=== PATIENT | male | born 1990 | race African-American/Black ===

== ENCOUNTER 2016-08-28 13:58 | Emergency (ER) | payer SELFPAY ==
[2016-08-28 14:03] VITALS: BMI 35.4
[2016-08-28 15:12] LABS: URINE APPEARANCE CLEAR; URINE BILIRUBIN NEGATIVE (NEGATIVE); URINE COLOR YELLOW; URINE GLUCOSE (UA) NEGATIVE (NEGATIVE); URINE KETONE NEGATIVE (NEGATIVE); URINE NITRITE NEGATIVE (NEGATIVE); URINE PROTEIN NEGATIVE (NEGATIVE); URINE UROBILINOGEN NEGATIVE E.U./dl (0.2-1.0)
[2016-08-28 15:14] LABS: URINE BLOOD 3+ (NEGATIVE); URINE LEUK ESTERASE TRACE (NEGATIVE)
[2016-08-28] MEDS ORDERED: KETOROLAC TROMETHAMINE 30 MG/1 ML VIAL IVPUSH ONE (15:16)
[2016-08-28] MEDS ORDERED: SODIUM CHLORIDE 1,000 ML IV STA (15:16)
[2016-08-28 15:18] LABS: URINE MUCUS RARE; URINE WBC 9 /hpf (3-5)
[2016-08-28 15:19] LABS: URINE RBC 219 /hpf (0-3)
--- NOTE | 2016-08-28 15:22 | PDOC ---
History of Present Illness - General Chief Complaint: Pain Stated Complaint: BLOOD IN URINE/LEFT SIDE PAIN Time Seen by Provider: 08/28/16 14:19 History Source: Patient Exam Limitations: No Limitations - History of Present Illness Travel History: No Initial Comments: 08/28/16 15:20 25-year-old male presents to the ED with complaints of left flank and associate with hematuria since yesterday. Patient denies history of urinary tract infection, penile discharge, renal colic, or recent injury. Patient does state family history of kidney stones. Patient has no other complaints at this time including fever, nausea, or urinary frequency Timing/Duration: reports: getting worse Quality: reports: moderate Abdominal Pain Onset Location: reports: LLQ, flank Pain Radiation: reports: no radiation Activities at Onset: reports: none Aggravating Factors: improves with: None Alleviating Factors: improves with: None Past History - Travel Traveled outside of the country in the last 30 days: No Close contact w/someone who was outside of country & ill: No - Past Medical History Allergies/Adverse Reactions: Allergies Allergy/AdvReac Type Severity Reaction Status Date / Time Penicillins Allergy Intermediate Rash Verified 08/28/16 14:00 doxycycline AdvReac Intermediate Nausea Verified 08/28/16 14:00 Home Medications: Ambulatory Orders NK [No Known Home Medication] 06/30/15 Suicide Attempt (Hx): No Other medical history: none - Surgical History Neurologic Surgery: Yes (BENIGN TUMOR REMOVAL BACK OF HEAD) - Immunization History Td Vaccination: Yes Immunization Up to Date: Yes - Psycho/Social/Smoking Cessation Hx Anxiety: No Suicidal Ideation: No Smoking Status: No Smoking History: Current some day smoker Have you smoked in the past 12 months: Yes Number of Cigarettes Smoked Daily: 0 Cigars Per Day: 1 Information on smoking cessation initiated: Yes 'Breaking Loose' booklet given: 08/28/16 Hx Alcohol Use: No Drug/Substance Use Hx: No Substance Use Type: None Patient Lives Alone: No Lives with/in: parents Review of Systems - Review of Systems Able to Perform ROS?: Yes Constitutional: No: Symptoms Reported HEENTM: No: Symptoms Reported ABD/GI: No: Symptoms Reported : Yes: Flank Pain, Hematuria Musculoskeletal: No: Symptoms Reported Integumentary: No: Symptoms Reported Neurological: No: Symptoms reported Endocrine: No: Symptoms Reported Hematologic/Lymphatic: No: Symptoms Reported *Physical Exam - Vital Signs Last Vital Signs Temp Pulse Resp BP Pulse Ox 97.8 F 61 18 130/78 100 08/28/16 14:00 08/28/16 14:00 08/28/16 14:00 08/28/16 14:00 08/28/16 14:00 - Physical Exam General Appearance: Yes: Nourished, Appropriately Dressed. No: Apparent Distress HEENT: negative: Pale Conjunctivae Neck: positive: Supple Respiratory/Chest: positive: Lungs Clear, Normal Breath Sounds. negative: Respiratory Distress, Accessory Muscle Use Cardiovascular: positive: Regular Rhythm, Regular Rate. negative: Murmur Gastrointestinal/Abdominal: positive: Soft, Tenderness (left flank. LEFT LOWER QUAD) Musculoskeletal: positive: CVA Tenderness (L) (MILD) Extremity: positive: Normal Capillary Refill Integumentary: positive: Normal Color, Warm, Moist Neurologic: positive: Normal Mood/Affect, Motor Strength 08/24 ED Treatment Course - LABORATORY CBC & Chemistry Diagram: 08/28/16 17:37 08/28/16 15:40 - ADDITIONAL ORDERS Additional order review: Laboratory Results 08/28/16 14:47 Urine Color Yellow Urine Appearance Clear Urine pH 5.0 D Urine Protein Negative Urine Glucose (UA) Negative Urine Ketones Negative Urine Blood 3+ H Urine Nitrite Negative Urine Bilirubin Negative Urine Urobilinogen Negative Ur Leukocyte Esterase Trace H - RADIOLOGY Radiology Studies Ordered: Category Date Time Status SPIRAL- RENAL-STONE CT [CT] Stat CT Scan 08/28/16 15:16 Ordered Medical Decision Making - Medical Decision Making 08/28/16 15:23 Patient with left flank pain associated hematuria for the past 2 days. Patient had tenderness to the left flank left CVA and left lower quadrant. Patient ordered for urine, labs, Toradol, IV fluids and spiral CT. 08/28/16 16:38 Laboratory Tests 08/28/16 14:47 Urine Blood 3+ H Ur Leukocyte Esterase Trace H Urine RBC 219 Urine WBC 9 CBC and comp hemolyzed. Patient CT shows no acute findings. Patient denies any trauma or insertion of object into his urethra and unsure of the quantity of blood noted in urine. Patient possibly had passed a stone but will do a bladder ultrasound and if negative will refer to urology. Laboratory Tests 08/28/16 17:37 WBC 6.3 Hgb 14.5 Hct 43.4 Neutrophils % 38.5 L Lymphocytes % 46.0 H Eosinophils % 4.6 H 08/28/16 18:45 Patient's ultrasound showed no acute findings. Patient to be discharged home to follow-up with urologist. 08/28/16 18:51 *DC/Admit/Observation/Transfer Diagnosis at time of Disposition: Hematuria - Discharge Dispostion Disposition: HOME Condition at time of disposition: Good - Referrals Referrals: Terry Parisi MD [Primary Care Provider] - Drew Morelos MD [Staff Physician] - - Patient Instructions Printed Discharge Instructions: DI for Hematuria Additional Instructions: Please follow-up with referred urologist and try to drink plenty of fluids. If the pain comes back, May take Tylenol otherwise with severe pain, come back to the emergency room.
[2016-08-28 17:48] LABS: BASOPHIL 1.2 % (0-2.0); EOSINOPHIL 4.6 % (0-4.5); MCH 31.8 pg (25.7-33.7); MCHC 33.4 g/dl (32.0-35.9); MEAN CELL VOLUME 95.1 fl (80-96); MEAN PLT VOLUME 8.8 fl (7.5-11.1); NEUTROPHILS 38.5 % (42.8-82.8); PLATELET COUNT 273 K/MM3 (134-434); RDW 12.7 % (11.9-15.9); WHITE BLOOD COUNT 6.3 K/mm3 (4.0-10.0)
--- NOTE | 2016-08-28 18:28 | PDOC ---
*Physical Exam - Vital Signs Last Vital Signs Temp Pulse Resp BP Pulse Ox 97.8 F 61 18 130/78 100 08/28/16 14:00 08/28/16 14:00 08/28/16 14:00 08/28/16 14:00 08/28/16 14:00 ED Treatment Course - LABORATORY CBC & Chemistry Diagram: 08/28/16 17:37 08/28/16 17:37 - ADDITIONAL ORDERS Additional order review: Laboratory Results 08/28/16 08/28/16 15:40 14:47 Sodium Cancelled Potassium Cancelled Chloride Cancelled Carbon Dioxide Cancelled Anion Gap Cancelled BUN Cancelled Creatinine Cancelled Creat Clearance w eGFR Cancelled Random Glucose Cancelled Calcium Cancelled Total Bilirubin Cancelled AST Cancelled ALT Cancelled Alkaline Phosphatase Cancelled Total Protein Cancelled Albumin Cancelled Urine Color Yellow Urine Appearance Clear Urine pH 5.0 D Urine Protein Negative Urine Glucose (UA) Negative Urine Ketones Negative Urine Blood 3+ H Urine Nitrite Negative Urine Bilirubin Negative Urine Urobilinogen Negative Ur Leukocyte Esterase Trace H Urine RBC 219 Urine WBC 9 Ur Epithelial Cells Rare Urine Mucus Rare 08/28/16 08/28/16 17:37 15:40 RBC 4.57 Cancelled MCV 95.1 Cancelled MCHC 33.4 Cancelled RDW 12.7 Cancelled MPV 8.8 Cancelled Neutrophils % 38.5 L Cancelled Lymphocytes % 46.0 H Cancelled Monocytes % 9.7 Cancelled Eosinophils % 4.6 H Cancelled Basophils % 1.2 Cancelled - Medications Given in the ED: ED Medications Discontinued Medications Generic Name Dose Route Start Last Admin Trade Name Freq PRN Reason Stop Dose Admin Sodium Chloride 1,000 mls @ 1,000 mls/hr 08/28/16 15:16 08/28/16 15:50 Normal Saline - IV 08/28/16 16:15 1,000 mls/hr ASDIR STA Administration Ketorolac Tromethamine 30 mg 08/28/16 15:16 08/28/16 15:50 Toradol Injection - IVPUSH 08/28/16 15:17 30 mg ONCE ONE Administration Medical Decision Making - Medical Decision Making 08/28/16 18:27 Pt seen by Midlevel Provider under my direct supervision Ancillary studies reviewed I agree with plan as outlined by Midlevel Provider *DC/Admit/Observation/Transfer Diagnosis at time of Disposition: Hematuria - Discharge Dispostion Disposition: HOME Condition at time of disposition: Good - Referrals Referrals: Drew Morelos MD [Staff Physician] - Terry Parisi MD [Primary Care Provider] - - Patient Instructions Printed Discharge Instructions: DI for Hematuria Additional Instructions: Please follow-up with referred urologist and try to drink plenty of fluids. If the pain comes back, May take Tylenol otherwise with severe pain, come back to the emergency room.
[2016-08-28 18:48] LABS: ALBUMIN 4.1 g/dl (3.4-5.0); ANION GAP 9 (8-16); BILIRUBIN,TOTAL 0.6 mg/dL (0.2-1.0); CALCIUM 8.9 mg/dL (8.5-10.1); CO2 26 mmol/L (21-32); COCKROFT - GAULT 164.38; CREATININE 1.1 mg/dL (0.7-1.3); GLUCOSE,RANDOM 85 mg/dL (74-106); SGOT/AST 32 U/L (15-37); SGPT/ALT 83 U/L (12-78); TOT PROT 7.6 g/dl (6.4-8.2)
[2016-08-28 18:49] LABS: ALK PHOS 72 U/L (45-117)
[2016-08-28 19:34] VITALS: BP 145/74; PULSE 80; TEMP 98.6
== END 2016-08-28 19:28 | disposition home or self-care (01) ==
LOC: JER 13:58
PROC: 3E0333Z Introduction of Anti-inflammatory into Peripheral Vein, Percutaneous Approach (ICD-10-PCS; principal; 2016-08-28)
DX: R31.9 Hematuria, unspecified (principal); Z84.1 Family history of disorders of kidney and ureter; F17.210 Nicotine dependence, cigarettes, uncomplicated
CPT/HCPCS: 36415; 74176; 76856-TC; 80053; 81003; 81015; 85025; 87086; 99283-25

== ENCOUNTER 2017-03-12 18:20 | Emergency (ER) | payer SELFPAY ==
--- NOTE | 2017-03-12 18:24 | PDOC ---
Rapid Medical Evaluation Time Seen by Provider: 03/12/17 18:21 Medical Evaluation: Allergies Allergy/AdvReac Type Severity Reaction Status Date / Time Penicillins Allergy Intermediate Rash Verified 08/28/16 14:00 doxycycline AdvReac Intermediate Nausea Verified 08/28/16 14:00 03/12/17 18:21 Pt presents with complaint of : rt cheek abscess x 1 week. no hx mrsa, no fever On brief exam: dry fluctulant rt cheek abscess I have ordered the following: none Pt will go to the Emergency Dept for further workup: Discharge Disposition - Diagnosis Abscess of external cheek, right - Referrals - Patient Instructions - Post Discharge Activity
[2017-03-12 18:26] VITALS: BP 120/65; PULSE 68; TEMP 97.7; BMI 32.8
--- NOTE | 2017-03-12 19:15 | PDOC ---
History of Present Illness - General Chief Complaint: Abscess Boil Stated Complaint: ABSCESS BOIL Time Seen by Provider: 03/12/17 18:21 - History of Present Illness Initial Comments: 03/12/17 19:08 CHIEF COMPLAINT: abscess HISTORY OF PRESENT ILLNESS: 26 yo M with hx of abscess to back of head requiring surgical I&D presents to fast track with abscess to R cheek x 1 week. Patient states "I was going to come in earlier, but I thought maybe I'd just let it sit until it was ready to pop. I think it's draining on its own now though." Patient denies any fever, chills, nausea, vomiting, or diarrhea. PAST MEDICAL HISTORY: Denies past medical history FAMILY HISTORY: Denies SOCIAL HISTORY: Denies tobacco, alcohol, illicit drug use. SURGICAL HISTORY: Denies ALLERGIES: PCB, doxy REVIEW OF SYSTEMS as per HPI PHYSICAL EXAM General Appearance: Well-appearing, appropriately dressed. HEENT: EOMI, PERRLA Respiratory/Chest: Lungs CTAB. Cardiovascular: RRR. S1, S2. Musculoskeletal/Extremities: Normal inspection. FROM of all extremities, normal capillary refill. No tenderness to extremities, pedal edema, swelling, erythema or deformity. Integumentary: 2cm x 2cm fluctuant abscess, active purulent drainage. Appropriate color, dry, warm. No cyanosis, erythema, jaundice or rash Neurologic: conductor freight II-XII intact. Fully oriented, alert. Appropriate mood/affect. Motor strength 5/5. No appreciable EOM palsy, facial droop or sensory deficit. Past History - Past Medical History Allergies/Adverse Reactions: Allergies Allergy/AdvReac Type Severity Reaction Status Date / Time Penicillins Allergy Intermediate Rash Verified 03/12/17 18:26 doxycycline AdvReac Intermediate Nausea Verified 03/12/17 18:26 Home Medications: Ambulatory Orders Sulfamethoxazole/Trimethoprim [Bactrim Ds -] 1 tab PO BID #14 tablet 03/12/17 COPD: No Other medical history: denies - Surgical History Neurologic Surgery: Yes (BENIGN TUMOR REMOVAL BACK OF HEAD) - Immunization History Td Vaccination: Yes Immunization Up to Date: Yes - Suicide/Smoking/Psychosocial Hx Smoking Status: No Smoking History: Former smoker Have you smoked in the past 12 months: Yes Number of Cigarettes Smoked Daily: 0 If you are a former smoker, when did you quit?: 5/17 Cigars Per Day: 1 Information on smoking cessation initiated: No 'Breaking Loose' booklet given: 08/28/16 Hx Alcohol Use: No Drug/Substance Use Hx: No Substance Use Type: None *Physical Exam - Vital Signs Last Vital Signs Temp Pulse Resp BP Pulse Ox 97.7 F 68 18 120/65 99 03/12/17 18:22 03/12/17 18:22 03/12/17 18:22 03/12/17 18:22 03/12/17 18:22 Medical Decision Making - Medical Decision Making 03/12/17 19:15 26 yo M with hx of abscess to back of head requiring surgical I&D presents to fast track with abscess to R cheek x 1 week. Abscess already with open draining wound. Expressed approximately 2 cc purulent drainage, wound culture sent. Bactrim rx sent. Advised patient to take medication as prescribed. Advised patient of signs and symptoms for return to ED. Patient verbalized understanding and agrees to plan. *DC/Admit/Observation/Transfer Diagnosis at time of Disposition: Abscess of external cheek, right - Discharge Dispostion Disposition: HOME Condition at time of disposition: Stable Admit: No - Prescriptions Prescriptions: Sulfamethoxazole/Trimethoprim [Bactrim Ds -] 1 tab PO BID #14 tablet - Referrals Referrals: Terry Parisi MD [Primary Care Provider] - - Patient Instructions Printed Discharge Instructions: DI for Skin Abscess Additional Instructions: Please take medications as prescribed and finish the entire course of antibiotics. As discussed, if the abscess grows beyond the area marked despite taking the medication, please return to the ER. If you develop any fever, chills , nausea, vomiting, or diarrhea, please return to the ER as well. - Post Discharge Activity
[2017-03-12] MEDS ORDERED: SULFAMETHOXAZOLE/TRIMETHOPRIM 800MG/160MG D.S. TABLET PO ONE (19:19)
[2017-03-12] MEDS ORDERED: SULFAMETHOXAZOLE/TRIMETHOPRIM 800MG/160MG D.S. TABLET ONE (19:27)
== END 2017-03-12 19:40 | disposition home or self-care (01) ==
LOC: JERFT 18:20
DX: L02.01 Cutaneous abscess of face (principal)
CPT/HCPCS: 87070; 87186; 87205; 99281-25

== ENCOUNTER 2017-05-19 11:41 | Emergency (ER) | payer SELFPAY ==
[2017-05-19 11:46] VITALS: BP 144/77; PULSE 105; TEMP 99.4; BMI 36.9
[2017-05-19] MEDS ORDERED: IBUPROFEN 600 MG TABLET (FP) PO ONE ×2 (12:17→12:19)
--- NOTE | 2017-05-19 13:01 | PDOC ---
History of Present Illness - General Chief Complaint: Respiratory Stated Complaint: COLD, BACK PAIN Time Seen by Provider: 05/19/17 11:56 History Source: Patient Exam Limitations: No Limitations - History of Present Illness Initial Comments: 05/19/17 12:56 26-year-old male presents the emergency room with complaints of sore throat, headache, myalgia, cough, and upper back pain. Patient states symptoms began 2 days ago. Patient states been taking Mucinex with no improvement. Patient has no other complaints at this time. Timing/Duration: reports: other Severity: reports: mild Possible Cause: Yes: other Associated Symptoms: reports: cough, fever/chills, sore throat Past History - Travel Traveled outside of the country in the last 30 days: No - Past Medical History Allergies/Adverse Reactions: Allergies Allergy/AdvReac Type Severity Reaction Status Date / Time Penicillins Allergy Intermediate Rash Verified 05/19/17 11:46 doxycycline AdvReac Intermediate Nausea Verified 05/19/17 11:46 Home Medications: Ambulatory Orders NK [No Known Home Medication] 05/19/17 COPD: No - Surgical History Neurologic Surgery: Yes (BENIGN TUMOR REMOVAL BACK OF HEAD) - Immunization History Td Vaccination: Yes Immunization Up to Date: Yes - Suicide/Smoking/Psychosocial Hx Smoking Status: No Smoking History: Former smoker Have you smoked in the past 12 months: Yes Number of Cigarettes Smoked Daily: 1 If you are a former smoker, when did you quit?: 09/05 Cigars Per Day: 1 Information on smoking cessation initiated: No 'Breaking Loose' booklet given: 08/28/16 Hx Alcohol Use: No Drug/Substance Use Hx: No Substance Use Type: None Lives with/in: parents Review of Systems - Review of Systems Able to Perform ROS?: Yes Constitutional: Yes: Fever HEENTM: Yes: Throat Pain Respiratory: Yes: Cough Cardiac (ROS): No: Symptoms Reported ABD/GI: No: Symptoms Reported Musculoskeletal: No: Symptoms Reported Integumentary: No: Symptoms Reported Neurological: No: Symptoms reported *Physical Exam - Vital Signs Last Vital Signs Temp Pulse Resp BP Pulse Ox 99.4 F 105 H 20 144/77 99 05/19/17 11:43 05/19/17 11:43 05/19/17 11:43 05/19/17 11:43 05/19/17 11:43 - Physical Exam General Appearance: Yes: Nourished, Appropriately Dressed. No: Apparent Distress HEENT: positive: EOMI, RICHARD, TMs Normal, Pharyngeal Erythema Neck: positive: Supple Respiratory/Chest: positive: Lungs Clear, Normal Breath Sounds. negative: Respiratory Distress, Accessory Muscle Use Cardiovascular: positive: Regular Rhythm, Tachycardia. negative: Murmur Gastrointestinal/Abdominal: positive: Soft. negative: Tenderness Integumentary: positive: Normal Color, Warm, Moist Neurologic: positive: Motor Strength 5/5 (ambulatory) ED Treatment Course - ADDITIONAL ORDERS Additional order review: 05/19/17 12:20 Influenza Types A,B Antigen (YEN) - Final Nasopharyngeal Swab - Final 05/19/17 12:20 Group A Strep Rapid Antigen - Final Throat - Medications Given in the ED: ED Medications Discontinued Medications Generic Name Dose Route Start Last Admin Trade Name Freq PRN Reason Stop Dose Admin Ibuprofen 600 mg 05/19/17 12:17 05/19/17 12:21 Motrin - PO 05/19/17 12:18 600 mg ONCE ONE Administration Medical Decision Making - Medical Decision Making 05/19/17 12:09 Patient ordered for Motrin secondary to low-grade temperature and tachycardia. Patient also ordered for influenza and rapid strep. *DC/Admit/Observation/Transfer Diagnosis at time of Disposition: Strep throat - Discharge Dispostion Disposition: HOME Condition at time of disposition: Good - Referrals Referrals: Terry Parisi MD [Primary Care Provider] - - Patient Instructions Printed Discharge Instructions: DI for Strep Throat Additional Instructions: May take Motrin for discomfort. Please take azithromycin as prescribed until completed. - Post Discharge Activity
== END 2017-05-19 13:12 | disposition home or self-care (01) ==
LOC: JERFT 11:41
DX: J02.0 Streptococcal pharyngitis (principal); B95.0 Streptococcus, group A, as the cause of diseases classified elsewhere
CPT/HCPCS: 87070; 87077; 87430; 87804; 99281-25

== ENCOUNTER 2017-05-21 19:48 | Emergency (ER) | payer SELFPAY ==
[2017-05-21 20:16] VITALS: BP 134/75; PULSE 60; TEMP 98.7; BMI 36.9
--- NOTE | 2017-05-21 20:16 | PDOC ---
Rapid Medical Evaluation Chief Complaint: Back Pain Time Seen by Provider: 05/21/17 20:07 Medical Evaluation: Allergies Allergy/AdvReac Type Severity Reaction Status Date / Time Penicillins Allergy Intermediate Rash Verified 05/19/17 11:46 doxycycline AdvReac Intermediate Nausea Verified 05/19/17 11:46 05/21/17 20:14 Pt with c/o: bilateral mid back pain worse on the left, dx'd with strep 2 days ago and on zpak. pain worse with movement Pt on brief exam: tender to bilateral trapezius at t4-t10. bs clear, vss Pt ordered for: chest pa lat Pt to proceed to the ED Discharge Disposition - Diagnosis Back pain - Referrals - Patient Instructions - Post Discharge Activity
[2017-05-21] MEDS ORDERED: ACETAMINOPHEN 500 MG TABLET (FP) PO ONE (20:17)
--- NOTE | 2017-05-21 21:45 | PDOC ---
History of Present Illness - General Chief Complaint: Back Pain Stated Complaint: BACK PAIN Time Seen by Provider: 05/21/17 20:07 History Source: Patient Exam Limitations: No Limitations Past History - Past Medical History Allergies/Adverse Reactions: Allergies Allergy/AdvReac Type Severity Reaction Status Date / Time Penicillins Allergy Intermediate Rash Verified 05/21/17 20:13 doxycycline AdvReac Intermediate Nausea Verified 05/21/17 20:13 Home Medications: Ambulatory Orders Azithromycin [Zithromax 250mg Tablets -] 250 mg PO UTDICT #6 tab 05/19/17 Clindamycin [Cleocin -] 300 mg PO QID #56 capsule 05/21/17 COPD: No - Surgical History Neurologic Surgery: Yes (BENIGN TUMOR REMOVAL BACK OF HEAD) - Immunization History Td Vaccination: Yes Immunization Up to Date: Yes - Suicide/Smoking/Psychosocial Hx Smoking Status: No Smoking History: Never smoked Have you smoked in the past 12 months: Yes Number of Cigarettes Smoked Daily: 1 If you are a former smoker, when did you quit?: 09/05 Cigars Per Day: 1 'Breaking Loose' booklet given: 08/28/16 Hx Alcohol Use: No Drug/Substance Use Hx: No Substance Use Type: None *Physical Exam - Vital Signs Last Vital Signs Temp Pulse Resp BP Pulse Ox 98.7 F 60 18 134/75 100 05/21/17 20:13 05/21/17 20:13 05/21/17 20:13 05/21/17 20:13 05/21/17 20:13 ED Treatment Course - Medications Given in the ED: ED Medications Discontinued Medications Generic Name Dose Route Start Last Admin Trade Name Tip PRN Reason Stop Dose Admin Acetaminophen 975 mg 05/21/17 20:17 05/21/17 20:19 Tylenol - PO 05/21/17 20:18 975 mg ONCE ONE Administration *DC/Admit/Observation/Transfer Diagnosis at time of Disposition: Abscess - Discharge Dispostion Disposition: HOME Condition at time of disposition: Stable Admit: No - Prescriptions Prescriptions: Clindamycin [Cleocin -] 300 mg PO QID #56 capsule - Referrals Referrals: Terry Parisi MD [Primary Care Provider] - - Patient Instructions Additional Instructions: Take clindamycin 300 mg 4 times a day for the next 2 weeks. Take Tylenol or Motrin as needed for pain. Return to emergency department for fevers, worsening pain, any other concerns. Thank you very much for choosing us to provide your emergent healthcare needs. - Post Discharge Activity
== END 2017-05-21 21:48 | disposition home or self-care (01) ==
LOC: JER 19:48 → JERFT 19:48
DX: M54.6 Pain in thoracic spine (principal); L02.212 Cutaneous abscess of back [any part, except buttock and flank]
CPT/HCPCS: 71046-TC; 99281-25

== ENCOUNTER 2017-06-23 04:16 | Emergency (ER) | payer SELFPAY ==
[2017-06-23] MEDS ORDERED: SODIUM CHLORIDE 1,000 ML IV STA (04:37)
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
[2017-06-23] MEDS ORDERED: FOLIC ACID INJECTION - 1 MG, THIAMINE HCL 100 MG, MULTIVIT INJECTION ADULT 10 ML in SOD... IVPB ONE (04:53)
[2017-06-23 05:04] LABS: BASO % 0.6 % (0-2.0); HEMATOCRIT 41.1 % (35.4-49); HEMOGLOBIN 14.5 GM/dL (11.7-16.9); LYMPH % 43.5 % (8-40); MCH 33.3 pg (25.7-33.7); MCHC 35.3 g/dl (32.0-35.9); MEAN CELL VOLUME 94.4 fl (80-96); MEAN PLT VOLUME 8.5 fl (7.5-11.1); MONO % 9.7 % (3.8-10.2); NEUT % 44.2 % (42.8-82.8); PLATELET COUNT 272 K/MM3 (134-434); RBC 4.36 M/mm3 (4.00-5.60); RDW 12.4 % (11.9-15.9)
[2017-06-23 05:19] LABS: INR 1.07 (0.82-1.09); PROTHROMBIN TIME (PATIENT) 12.1 SEC (9.98-11.88)
[2017-06-23 05:26] VITALS: TEMP 98.3; BMI 74.9
[2017-06-23 05:32] LABS: ALBUMIN 4.4 g/dl (3.4-5.0); ANION GAP 8 (8-16); BILIRUBIN,TOTAL 0.6 mg/dL (0.2-1.0); BLOOD UREA NITROGEN 13 mg/dL (7-18); CALCIUM 8.6 mg/dL (8.5-10.1); CHLORIDE 105 mmol/L (98-107); CO2 27 mmol/L (21-32); CREATININE 1.4 mg/dL (0.7-1.3); GLUCOSE,RANDOM 114 mg/dL (74-106); POTASSIUM 3.7 mmol/L (3.5-5.1); SGOT/AST 35 U/L (15-37); SGPT/ALT 73 U/L (12-78); SODIUM 140 mmol/L (136-145); TOT PROT 7.7 g/dl (6.4-8.2)
[2017-06-23 05:33] LABS: ALK PHOS 68 U/L (45-117)
--- NOTE | 2017-06-23 07:04 | PDOC ---
*Physical Exam - Vital Signs Last Vital Signs Temp Pulse Resp BP Pulse Ox 98.3 F 75 18 115/75 100 06/23/17 04:25 06/23/17 04:25 06/23/17 04:25 06/23/17 04:25 06/23/17 04:25 - Physical Exam General Appearance: Yes: Nourished, Appropriately Dressed. No: Apparent Distress Gastrointestinal/Abdominal: positive: Normal Bowel Sounds, Flat, Soft. negative : Tender, Guarding, Rebound, Tenderness Neurologic: positive: internet marketing director II-XII NML intact, Fully Oriented, Alert, Normal Mood/ Affect, Normal Response, Motor Strength 08/24 ED Treatment Course - LABORATORY CBC & Chemistry Diagram: 06/23/17 04:32 06/23/17 04:32 - ADDITIONAL ORDERS Additional order review: Laboratory Results 06/23/17 06/23/17 04:32 04:32 PT with INR 12.10 H INR 1.07 Sodium 140 Potassium 3.7 Chloride 105 Carbon Dioxide 27 Anion Gap 8 BUN 13 Creatinine 1.4 H D Creat Clearance w eGFR > 60 Random Glucose 114 H D Calcium 8.6 Total Bilirubin 0.6 AST 35 ALT 73 Alkaline Phosphatase 68 Total Protein 7.7 Albumin 4.4 06/23/17 04:32 RBC 4.36 MCV 94.4 MCHC 35.3 RDW 12.4 MPV 8.5 Neutrophils % 44.2 Lymphocytes % 43.5 H Monocytes % 9.7 Eosinophils % 2.0 Basophils % 0.6 - Medications Given in the ED: ED Medications Discontinued Medications Generic Name Dose Route Start Last Admin Trade Name Freq PRN Reason Stop Dose Admin Sodium Chloride 1,000 mls @ 1,000 mls/hr 06/23/17 04:37 06/23/17 04:40 Normal Saline - IV 06/23/17 05:36 1,000 mls/hr ASDIR STA Administration Medical Decision Making - Medical Decision Making 06/23/17 08:00 Sign out received from Isidra Fan at shift change. Pt has now metabolized alcohol. States he feels better after 2 L of fluids. No abdominal pain on re- evaluation. Will d/c home at this time. Return precautions given. Pt. understands all d.c instructions and all questions were answered. *DC/Admit/Observation/Transfer Diagnosis at time of Disposition: Alcohol intoxication Qualifiers: Complication of substance-induced condition: uncomplicated Qualified Code(s): F10.920 - Alcohol use, unspecified with intoxication, uncomplicated - Discharge Dispostion Disposition: HOME Condition at time of disposition: Stable Admit: No - Prescriptions Prescriptions: Ranitidine [Zantac -] 150 mg PO BID #14 tablet - Referrals Referrals: Devaughn Kim MD [Staff Physician] - - Patient Instructions Printed Discharge Instructions: DI for Alcohol Abuse Additional Instructions: Increase fluids Eat a bland diet; bananas, plain rice, toast, apple sauce Tylenol as needed for pain. Follow dosing instructions on the bottle. Limit alcohol intake. Return to the ER for abdominal pain, chest pain, shortness of breath or any new or worsening symptoms. - Post Discharge Activity Forms/Work/School Notes: Back to Work
[2017-06-23] MEDS ORDERED: ACETAMINOPHEN 325 MG TABLET (FP) PO ONE (08:05)
[2017-06-23] MEDS ORDERED: ACETAMINOPHEN 650 MG/20.3 ML ORAL SOLUTION (CUPS) ONE (08:21)
[2017-06-23 08:31] VITALS: BP 118/84; PULSE 89
== END 2017-06-23 08:31 | disposition home or self-care (01) ==
LOC: JER 04:16
PROC: 3E033GC Introduction of Other Therapeutic Substance into Peripheral Vein, Percutaneous Approach (ICD-10-PCS; principal; 2017-06-23)
PROC: 3E0337Z Introduction of Electrolytic and Water Balance Substance into Peripheral Vein, Percutaneous Approach (ICD-10-PCS; 2017-06-23)
DX: F10.920 Alcohol use, unspecified with intoxication, uncomplicated (principal)
CPT/HCPCS: 36415; 80053; 85025; 85610; 99281-25

== ENCOUNTER 2017-12-14 00:38 | Emergency (ER) | payer SELFPAY ==
--- NOTE | 2017-12-14 01:14 | PDOC ---
History of Present Illness - General Stated Complaint: SORE THROAT,CONGESTION Time Seen by Provider: 12/14/17 01:14 - History of Present Illness Initial Comments: 12/14/17 02:00 The patient is a 27 year old male with no significant PMH who presents for evaluation of sore throat. The patient reports a 3 day history of subjective fevers, body aches, sore throat, and chest congestion prompting his presentation to the ED for further evaluation. He denies any sick contacts and cough and otherwise denies chest pain, nausea, vomiting, abdominal pain, or changes with urination or bowel movements. Past History - Past Medical History Allergies/Adverse Reactions: Allergies Allergy/AdvReac Type Severity Reaction Status Date / Time Penicillins Allergy Intermediate Rash Verified 12/14/17 01:57 doxycycline AdvReac Intermediate Nausea Verified 12/14/17 01:57 Home Medications: Ambulatory Orders Carbamide Peroxide [Debrox] 15 ml OD TID #30 drops 12/02/17 Sulfamethoxazole/Trimethoprim [Bactrim Ds -] 1 tab PO BID #20 tablet 12/02/17 Azithromycin [Zithromax Tri-Jorge (3 DAYS) -] 500 mg PO DAILY #3 tablet 12/14/17 COPD: No - Surgical History Neurologic Surgery: Yes (BENIGN TUMOR REMOVAL BACK OF HEAD) - Immunization History Td Vaccination: Yes Immunization Up to Date: Yes - Suicide/Smoking/Psychosocial Hx Smoking Status: No Smoking History: Never smoked Have you smoked in the past 12 months: Yes Number of Cigarettes Smoked Daily: 4 If you are a former smoker, when did you quit?: 09/05 Cigars Per Day: 1 'Breaking Loose' booklet given: 08/28/16 Hx Alcohol Use: No Drug/Substance Use Hx: No Substance Use Type: None Review of Systems - Review of Systems Comments:: 12/14/17 02:01 Constitutional: Subjective Fevers, Body aches, No chills, fatigue, malaise HEENT: Sore throat, No Rhinorrhea, nasal congestion, visual changes Cardiovascular: Chest congestion. No chest pain, syncope, palpitations, lightheadedness Respiratory: No Cough, SOB, Hemoptysis, Gastrointestinal: No Abdominal pain, Nausea, Vomiting, Constipation, Diarrhea, Melena Genitourinary: No Dysuria, Frequency, Urgency, Hesitancy, Hematuria, Flank pain Musculoskeletal: No Myalgia, arthralgia Skin: No rashes, itching, bruising, pallor Neurologic: No Headache, Dizziness, Numbness, Weakness, or Tingling Psychiatric: No Hallucinations. No SI or HI *Physical Exam - Physical Exam Comments: 12/14/17 02:05 General Appearance: Nourished. No Apparent Distress HEENT: Pharyngeal Erythema, Tonsillar Exudate, Tonsillar Erythema and noted on exam. Neck: No Cervical Lymphadenopathy Respiratory/Chest: Lungs Clear, Normal Breath Sounds. No Crackles, Rales, Rhonchi, Wheezing Cardiovascular: Regular Rhythm, Regular Rate. No Murmur, Gallops, Rubs Gastrointestinal/Abdominal: Normal Bowel Sounds, Soft. No Guarding, Rebound, Tenderness Musculoskeletal: No CVA Tenderness Extremity: Normal Capillary Refill Integumentary: Normal Color, Dry, Warm Neurologic: Fully Oriented, Alert, Normal Mood/Affect, Normal Response, Medical Decision Making - Medical Decision Making 12/14/17 02:06 The patient is a 27 year old male with no significant PMH who presents for evaluation of sore throat. Given the patient's history and physical exam, it is likely the patient's symptoms are due to strep pharyngitis. The patient's rapid strep was positive here in the ED. We will treat with azithromycin and are comfortable discharging the patient on azithromycin with primary care provider follow up. We discussed the results, plan, and return precautions with the patient who voiced understanding and is agreeable with the plan. *DC/Admit/Observation/Transfer Diagnosis at time of Disposition: Strep throat - Discharge Dispostion Disposition: HOME Condition at time of disposition: Stable - Prescriptions Prescriptions: Azithromycin [Zithromax Tri-Jorge (3 DAYS) -] 500 mg PO DAILY #3 tablet - Referrals Referrals: Terry Parisi MD [Primary Care Provider] - - Patient Instructions Printed Discharge Instructions: DI for Strep Throat Additional Instructions: Please return to the ER if you experience concerning or worsening symptoms including worsening fevers, difficulty breathing, or vomiting. Your strep test was positive here in the ER. We have sent antibiotics to your pharmacy which you should take as directed. Please call to schedule a follow up appointment with your primary care provider within 2-3 days to discuss your ER visit and further management of your symptoms. - Post Discharge Activity Forms/Work/School Notes: Back to Work
--- NOTE | 2017-12-14 01:19 | PDOC ---
Attending Attestation - Resident Resident Name: Nicola Pacheco - ED Attending Attestation I have performed the following: I have examined & evaluated the patient, The case was reviewed & discussed with the resident, I agree w/resident's findings & plan - Medical Decision Making 12/14/17 02:04 Pt has pus on tonsils bilaterally; he will be treated for strep throat. Culture came back positive as well. Pt will be treated with zpak x 2 as he is allergic to PCN. <Roxanne Mills - Last Filed: 12/14/17 02:04> - HPI HPI: 12/14/17 03:06 The patient is a 27 year old male, with no significant past medical history, who presents to the emergency department with, 3 days of sore throat and congestion. He denies any recent fevers, chills, headache or dizziness. He denies any recent nausea, vomit, diarrhea or constipation. He denies any recent chest pain or shortness of breath. He denies any recent dysuria, frequency, urgency or hematuria. Allergies: Penicillins and doxycycline. Social History: Nonsmoker. Denies EtOH use and recreational drug use. - Physicial Exam PE: 12/14/17 03:06 GENERAL: Awake, alert, and fully oriented, in no acute distress HEAD: No signs of trauma EYES: PERRLA, EOMI, sclera anicteric, conjunctiva clear +ENT: Bilateral tonsillar exudates. Auricles normal inspection, hearing grossly normal, nares patent. NECK: Normal ROM, supple, no lymphadenopathy, JVD, or masses LUNGS: Breath sounds equal, clear to auscultation bilaterally. No wheezes, and no crackles HEART: Regular rate and rhythm, normal S1 and S2, no murmurs, rubs or gallops ABDOMEN: Soft, nontender, normoactive bowel sounds. No guarding, no rebound. No masses EXTREMITIES: Normal range of motion, no edema. No clubbing or cyanosis. No cords, erythema, or tenderness NEUROLOGICAL: Cranial nerves II through XII grossly intact. Normal speech, normal gait SKIN: Warm, Dry, normal turgor, no rashes or lesions noted. <Floyd Murrieta - Last Filed: 12/14/17 03:07> Attestations - Attestations 12/14/17 03:07 Documentation prepared by Floyd Murrieta, acting as manager of medical for Roxanne Mills MD. <Floyd Murrieta - Last Filed: 12/14/17 03:07>
[2017-12-14] MEDS ORDERED: IBUPROFEN 600 MG TABLET (FP) PO ONE ×2 (01:45→01:49)
[2017-12-14 01:57] VITALS: BP 127/71; PULSE 66; TEMP 99.3; BMI 38.0
[2017-12-14] MEDS ORDERED: AZITHROMYCIN 250 MG TABLET PO ONE (02:03)
[2017-12-14] MEDS ORDERED: AZITHROMYCIN 250 MG TABLET ONE (02:11)
== END 2017-12-14 02:17 | disposition home or self-care (01) ==
LOC: JER 00:38
DX: J02.0 Streptococcal pharyngitis (principal); B95.0 Streptococcus, group A, as the cause of diseases classified elsewhere
CPT/HCPCS: 87070; 87430; 99281-25

== ENCOUNTER 2018-04-12 00:21 | Emergency (ER) | payer OTHER ==
[2018-04-12 00:40] VITALS: BP 137/74; PULSE 74; TEMP 98.1; BMI 36.5
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
[2018-04-12 02:25] LABS: HEMATOCRIT 38.4 % (35.4-49); HEMOGLOBIN 13.8 GM/dL (11.7-16.9); MCH 33.4 pg (25.7-33.7); MCHC 35.8 g/dl (32.0-35.9); MEAN CELL VOLUME 93.1 fl (80-96); MEAN PLT VOLUME 8.8 fl (7.5-11.1); PLATELET COUNT 267 K/MM3 (134-434); RBC 4.13 M/mm3 (4.00-5.60); RDW 12.2 % (11.9-15.9); WHITE BLOOD COUNT 6.7 K/mm3 (4.0-10.0)
[2018-04-12 02:48] LABS: ANION GAP 8 MMOL/L (8-16); BLOOD UREA NITROGEN 14 mg/dL (7-18); CALCIUM 9.1 mg/dL (8.5-10.1); CHLORIDE 105 mmol/L (98-107); CO2 26 mmol/L (21-32); CREATININE 1.2 mg/dL (0.55-1.3); GLUCOSE,RANDOM 92 mg/dL (74-106); POTASSIUM 3.7 mmol/L (3.5-5.1); SODIUM 138 mmol/L (136-145)
== END 2018-04-12 03:35 | disposition home or self-care (01) ==
LOC: JER 00:21
CPT/HCPCS: 36415; 70450-TC; 72125-TC; 80048; 85027; 99283-25

== ENCOUNTER 2018-04-29 16:52 | Emergency (ER) | payer OTHER ==
--- NOTE | 2018-04-29 17:10 | PDOC ---
Rapid Medical Evaluation Chief Complaint: Laceration Time Seen by Provider: 04/29/18 17:06 Medical Evaluation: Allergies Allergy/AdvReac Type Severity Reaction Status Date / Time Penicillins Allergy Severe Swelling Verified 04/12/18 01:56 doxycycline AdvReac Intermediate Nausea Verified 04/12/18 00:40 04/29/18 17:09 I performed a brief in person evaluation. CC: Laceration HPI: Pt is a 27 Yo female with a hx of lac to left hand since 0800 today. Pt's tetanus is UTD. PE: Skin: 3 cm lace to palmar surface of left hand, no bleeding. Lungs: Clear Heart: RRR MS: Moves all extremities without difficulty Neuro: Alert Psych: Appropriate affect Pt will go to [facility] for further evaluation. Discharge Disposition - Diagnosis Laceration - Referrals - Patient Instructions - Post Discharge Activity
[2018-04-29 17:12] VITALS: BP 147/81; PULSE 86; TEMP 98.1; BMI 38.0
[2018-04-29] MEDS ORDERED: DIPHTH,PERTUSS(ACELL),TET 0.5 ML DISP.SYRIN IM ONE ×2 (17:48→17:50)
--- NOTE | 2018-04-29 17:48 | PDOC ---
History of Present Illness - General Chief Complaint: Laceration Stated Complaint: INJURY TO HAND Time Seen by Provider: 04/29/18 17:06 History Source: Patient Exam Limitations: No Limitations - History of Present Illness Initial Comments: 04/29/18 18:16 Pt is a 27 y/o M who presents to the ED for a laceration to his L palm. Pt is R hand dominant. 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 He applied a pressure dressing to the wound and continued working. He states he is here for stitches. He does not remember the date of his last tetanus shot. Denies fevers ,chills, decreased rom to the L hand, drainage from the site. Past History - Travel Traveled outside of the country in the last 30 days: No Close contact w/someone who was outside of country & ill: No - Past Medical History Allergies/Adverse Reactions: Allergies Allergy/AdvReac Type Severity Reaction Status Date / Time Penicillins Allergy Severe Swelling Verified 04/12/18 01:56 doxycycline AdvReac Intermediate Nausea Verified 04/12/18 00:40 Home Medications: Ambulatory Orders NK [No Known Home Medication] 04/12/18 Asthma: No Cancer: No Cardiac Disorders: No COPD: No CHF: No DVT: No Dementia: No Diabetes: No Dialysis: No HTN: No Hypercholesterolemia: No Liver Disease: No - Surgical History Abdominal Surgery: No Appendectomy: No Cardiac Surgery: No Cholecystectomy: No Gastric Stapling: No GI Surgery: No Lung Surgery: No Neurologic Surgery: Yes (BENIGN TUMOR REMOVAL BACK OF HEAD x 2) - Immunization History Td Vaccination: Yes Immunization Up to Date: Yes - Suicide/Smoking/Psychosocial Hx Smoking Status: No Smoking History: Never smoked Have you smoked in the past 12 months: No Number of Cigarettes Smoked Daily: 4 If you are a former smoker, when did you quit?: 09/05 Cigars Per Day: 1 Information on smoking cessation initiated: No 'Breaking Loose' booklet given: 08/28/16 Hx Alcohol Use: No Drug/Substance Use Hx: No Substance Use Type: None Review of Systems - Review of Systems Able to Perform ROS?: Yes Comments:: 04/29/18 18:06 CONSTITUTIONAL: Absent: fever, chills, diaphoresis, generalized weakness, malaise, loss of appetite MUSCULOSKELETAL: Absent: myalgia, arthralgia, joint swelling SKIN: Present: laceration to L palm Absent: rash, itching, pallor HEMATOLOGIC/IMMUNOLOGIC: Absent: easy bleeding, easy bruising, lymphadenopathy, frequent infections ENDOCRINE: Absent: unexplained weight gain, unexplained weight loss, heat intolerance, cold intolerance NEUROLOGIC: Absent: headache, focal weakness or paresthesias, dizziness, unsteady gait, seizure, mental status changes, bladder or bowel incontinence PSYCHIATRIC: Absent: anxiety, depression, suicidal or homicidal ideation, hallucinations. Is the patient limited Danish proficient: No *Physical Exam - Vital Signs Last Vital Signs Temp Pulse Resp BP Pulse Ox 98.1 F 86 18 147/81 98 04/29/18 17:09 04/29/18 17:09 04/29/18 17:09 04/29/18 17:09 04/29/18 17:09 - Physical Exam Comments: 04/29/18 18:06 GENERAL: The patient is awake, alert, and fully oriented, in no acute distress. HEAD: Normal with no signs of trauma. EYES: Pupils equal, round and reactive to light, extraocular movements intact, sclera anicteric, conjunctiva clear. EXTREMITIES: Normal range of motion at all joints, no edema. NEUROLOGICAL: Normal speech, normal gait. PSYCH: Normal mood, normal affect. SKIN: 4cm linear closed laceration to the L palm along the ulnar aspect. No bleeding Warm, Dry, normal turgor, no rashes or lesions noted. Moderate Sedation - Procedure Monitoring Vital Signs: Procedure Monitoring Vital Signs Temperature 98.1 F 04/29/18 17:09 Pulse Rate 86 04/29/18 17:09 Respiratory Rate 18 04/29/18 17:09 Blood Pressure 147/81 04/29/18 17:09 O2 Sat by Pulse Oximetry (%) 98 04/29/18 17:09 Procedures - Laceration/Wound Repair Left Volar Hand Wound Length: 2.6 to 5.0 cm Wound Explored: clean, no foreign body present Wound's Depth, Shape: superficial Betadine Prep: No (wound was sealed d/t secondary intention prior to arrival) Wound Repaired With: Dermabond Medical Decision Making - Medical Decision Making 04/29/18 18:10 Pt is a 27 y/o M who presents to the ED for a laceration to his L palm sustained at work around 9am this morning -Pt with a 4cm laceration to his L palm along the ulnar aspect -On exam wound is closed d/t secondary intention (previously had a pressure dressing on the wound) -Dermabond placed over the cut to prevent reopening -Tetnus shot updated -DC home -I discussed the physical exam findings, ancillary test results and final diagnoses with the patient. I answered all of the patient's questions. The patient was satisfied with the care received and felt comfortable with the discharge plan and treatment plan. The Patient agrees to follow up with the primary care physician/specialist within 24-72 hours. Return precautions were given. *DC/Admit/Observation/Transfer Diagnosis at time of Disposition: Laceration - Discharge Dispostion Disposition: HOME Condition at time of disposition: Stable Decision to Admit order: No - Referrals Referrals: Terry Parisi MD [Primary Care Provider] - - Patient Instructions Printed Discharge Instructions: DI for Laceration Repair With Dermabond Additional Instructions: You had your laceration repaired with dermabond today Your tetanus shot was updated today. Keep the hand clean and dry today You may gently wash your hand with soap and water tomorrow Do not soak the hand until the wound is completely healed The dermabond will fall off on it's own. Return to the ED if you have worsening pain, redness to the site, fever, or if you have any changes in your symptoms - Post Discharge Activity Forms/Work/School Notes: Back to Work
== END 2018-04-29 18:14 | disposition home or self-care (01) ==
LOC: JERFT 16:52
PROC: 0HQGXZZ Repair Left Hand Skin, External Approach (ICD-10-PCS; principal; 2018-04-29)
PROC: 3E0234Z Introduction of Serum, Toxoid and Vaccine into Muscle, Percutaneous Approach (ICD-10-PCS; 2018-04-29)
DX: S61.412A Laceration without foreign body of left hand, initial encounter (principal); W26.0XXA Contact with knife, initial encounter; Y93.G1 Activity, food preparation and clean up; Y92.233 Cafeteria of hospital as the place of occurrence of the external cause; Y99.0 Civilian activity done for income or pay
CPT/HCPCS: 90715; 99281-25

== ENCOUNTER 2018-08-17 22:56 | Emergency (ER) | payer SELFPAY ==
[2018-08-17 23:12] VITALS: BMI 30.1
--- NOTE | 2018-08-17 23:41 | PDOC ---
History of Present Illness - General Chief Complaint: Cold Symptoms Stated Complaint: SORE THROAT/BODY HURT FEVER History Source: Patient Exam Limitations: No Limitations - History of Present Illness Initial Comments: 08/17/18 23:32 Patient is a 27 year old male with pmhx cystecytomy scalp c/o sore throat since today, subjective fever and bodyache. Pain is 10/10 which is sharp and worse with swallowing. Not eating well today. Denies abdominal pain, diarrhea, constipation PMD: Dr. Parisi PMHX: neg PSOCHX: (+) cigar occ, occ etoh, neg drug ALL: PCN - tongue swelling GENERAL/CONSTITUTIONAL: No fever or chills. No weakness. No weight change. HEAD, EYES, EARS, NOSE AND THROAT: No change in vision. No ear pain or discharge. No sore throat. CARDIOVASCULAR: No chest pain or shortness of breath. RESPIRATORY: No cough, wheezing, or hemoptysis. GASTROINTESTINAL: No nausea, vomiting, diarrhea or constipation. No rectal bleeding. GENITOURINARY: No dysuria, frequency, or change in urination. MUSCULOSKELETAL: No joint or muscle swelling or pain. No neck or back pain. SKIN AND BREASTS: No rash or easy bruising. NEUROLOGIC: No headache, vertigo, loss of consciousness, or loss of sensation. PSYCHIATRIC: No depression or anxiety. ENDOCRINE: No increased thirst. No abnormal weight change. HEMATOLOGIC/LYMPHATIC: No anemia, easy bleeding, or history of blood clots. ALLERGIC/IMMUNOLOGIC: No hives or skin allergy. No latex allergy. GENERAL: The patient is awake, alert, and fully oriented, in no acute distress. HEAD: Normal with no signs of trauma. EYES: Pupils equal, round and reactive to light, extraocular movements intact, sclera anicteric, conjunctiva clear. ENT: Ears normal, nares patent, oropharynx clear without exudates, mild erythema. Moist mucous membranes. NECK: Normal range of motion, supple without lymphadenopathy, JVD, or masses. LUNGS: Breath sounds equal, clear to auscultation bilaterally. No wheezes, and no crackles. HEART: Regular rate and rhythm, normal S1 and S2 without murmur, rub. ABDOMEN: Soft, nontender, normoactive bowel sounds. No guarding, no rebound. No masses. EXTREMITIES: Normal range of motion, no edema. No clubbing or cyanosis. No cords, erythema, or tenderness. NEUROLOGICAL: Cranial nerves II through XII grossly intact. Normal speech, normal gait. PSYCH: Normal mood, normal affect. SKIN: Warmth, Dry, normal turgor, no rashes or lesions noted. Past History - Past Medical History Allergies/Adverse Reactions: Allergies Allergy/AdvReac Type Severity Reaction Status Date / Time Penicillins Allergy Severe Swelling Verified 04/12/18 01:56 doxycycline AdvReac Intermediate Nausea Verified 04/12/18 00:40 Home Medications: Ambulatory Orders NK [No Known Home Medication] 04/12/18 Asthma: No Cancer: No Cardiac Disorders: No COPD: No CHF: No DVT: No Dementia: No Diabetes: No Dialysis: No HTN: No Hypercholesterolemia: No Liver Disease: No - Surgical History Abdominal Surgery: No Appendectomy: No Cardiac Surgery: No Cholecystectomy: No Gastric Stapling: No GI Surgery: No Lung Surgery: No Neurologic Surgery: Yes (BENIGN TUMOR REMOVAL BACK OF HEAD x 2) - Immunization History Td Vaccination: Yes Immunization Up to Date: Yes - Suicide/Smoking/Psychosocial Hx Smoking Status: No Smoking History: Current some day smoker Have you smoked in the past 12 months: No Number of Cigarettes Smoked Daily: 4 If you are a former smoker, when did you quit?: 09/05 Cigars Per Day: 1 Information on smoking cessation initiated: Yes 'Breaking Loose' booklet given: 08/28/16 Hx Alcohol Use: No Drug/Substance Use Hx: No Substance Use Type: None *Physical Exam - Vital Signs Last Vital Signs Temp Pulse Resp BP Pulse Ox 99.5 F 96 H 20 110/71 96 08/17/18 23:04 08/17/18 23:04 08/17/18 23:04 08/17/18 23:04 08/17/18 23:04 Medical Decision Making - Medical Decision Making 08/17/18 23:32 Patient is a 27 year old male with pmhx cystecytomy scalp c/o sore throat since today, subjective fever and bodyache. Pain is 10/10 which is sharp and worse with swallowing. Symptoms consistent with pharyngitis rule out strep Rapid strep IV fluid, Toradol, Decadron VSS 08/18/18 03:57 Patient states improved tolerating by mouth, Rapid strep and influenza are negative I discussed the physical exam findings, ancillary test results and final diagnoses with the patient. I answered all of the patient's questions. The patient was satisfied with the care received and felt comfortable with the discharge plan and treatment plan. The Patient agrees to follow up with the primary care physician within 24-72 hours. *DC/Admit/Observation/Transfer Diagnosis at time of Disposition: Viral pharyngitis - Discharge Dispostion Disposition: HOME Condition at time of disposition: Stable - Referrals - Patient Instructions Printed Discharge Instructions: DI for Viral Pharyngitis Additional Instructions: Your Discharge Instructions: You must call primary care physician within 24 hours to arrange follow-up. Return to the Emergency Department with any new, persistent or worsening symptoms, for fever, chills, SOB, dizziness or any other concerning changes that may occur. He was follow-up with her primary care doctor in 1-2 days. Continue Tylenol and Motrin every 6 hours for pain and fever. If you have fever persists beyond 3 days must return to the emergency room. - Post Discharge Activity
[2018-08-17] MEDS ORDERED: KETOROLAC TROMETHAMINE 30 MG/1 ML VIAL IVPUSH ONE (23:43)
[2018-08-17] MEDS ORDERED: SODIUM CHLORIDE 0.9% 500 ML INFUS.BAG IV ONE (23:43)
[2018-08-17] MEDS ORDERED: DEXAMETHASONE SOD PHOSPHATE 10 MG/1 ML VIAL IVPUSH ONE (23:43)
[2018-08-17] MEDS ORDERED: DEXAMETHASONE SOD PHOSPHATE 10 MG/1 ML VIAL ONE (23:58)
[2018-08-17] MEDS ORDERED: KETOROLAC TROMETHAMINE 30 MG/1 ML VIAL ONE (23:59)
[2018-08-18 02:17] VITALS: BP 114/85; PULSE 98; TEMP 101.2
[2018-08-18] MEDS ORDERED: ACETAMINOPHEN 500 MG TABLET (FP) PO ONE (02:29)
[2018-08-18] MEDS ORDERED: ACETAMINOPHEN 325 MG TABLET (FP) ONE (02:32)
== END 2018-08-18 06:01 | disposition home or self-care (01) ==
LOC: JER 22:56
PROC: 3E0333Z Introduction of Anti-inflammatory into Peripheral Vein, Percutaneous Approach (ICD-10-PCS; principal; 2018-08-17)
PROC: 3E0333Z Introduction of Anti-inflammatory into Peripheral Vein, Percutaneous Approach (ICD-10-PCS; 2018-08-17)
DX: J02.9 Acute pharyngitis, unspecified (principal)
CPT/HCPCS: 87070; 87804; 87880; 99281-25; J1100

== ENCOUNTER 2019-04-20 22:27 | Emergency (ER) | payer OTHER ==
[2019-04-20 22:48] VITALS: BMI 33.7
--- NOTE | 2019-04-20 22:57 | PDOC ---
*Physical Exam - Vital Signs Last Vital Signs Temp Pulse Resp BP Pulse Ox 98.6 F 78 17 106/73 98 04/20/19 22:41 04/20/19 22:41 04/20/19 22:41 04/20/19 22:41 04/20/19 22:41 Medical Decision Making - Medical Decision Making 04/20/19 22:57 Patient seen by the advanced practice provider under my direct supervision. Ancillary testing reviewed as necessary. I agree with plan as outlined by the advanced practice provider. Discharge - Follow up/Referral Referrals: Terry Parisi MD [Primary Care Provider] - - Patient Discharge Instructions - Post Discharge Activity
[2019-04-20] MEDS ORDERED: IBUPROFEN 400 MG TABLET (FP) PO ONE (23:34)
[2019-04-20] MEDS ORDERED: PSEUDOEPHEDRINE HCL 30 MG TABLET PO ONE (23:37)
--- NOTE | 2019-04-20 23:39 | PDOC ---
Documentation entered by Floyd Murrieta SCRIBE, acting as scribe for Stephy Shields MD. Stephy Shields MD: This documentation has been prepared by the Lit wang Nirvannie, SCRIBE, under my direction and personally reviewed by me in its entirety. I confirm that the documentation accurately reflects all work, treatment, procedures, and medical decision making performed by me. Attending Attestation - Resident Resident Name: Darrick Mejia - ED Attending Attestation I have performed the following: I have examined & evaluated the patient, The case was reviewed & discussed with the resident, I agree w/resident's findings & plan, Exceptions are as noted - HPI HPI: 04/20/19 23:36 The patient is a 28 year old male, with no significant past medical history, who presents to the emergency department with generalized malaise, fever, and weakness. He notes similar symptoms in the past which secondary to viral illnesses. He denies any recent fevers, chills, headache or dizziness. He denies any recent nausea, vomit, diarrhea or constipation. He denies any recent chest pain or shortness of breath. He denies any recent dysuria, frequency, urgency or hematuria. Allergies: Penicillins and doxycycline. Social History: Occasional cigar smoking. Primary Care Physician: Dr. Parisi - Physicial Exam PE: 04/20/19 23:38 awake alert lungs clear bilat heart rrr no mrg abd soft nt nd ext wwp. nasal congestion clear. throat with pharyngeal erythema, no exudate. post cobblestoning. skin warm and dry no rash. wel appearing. - Medical Decision Making 04/20/19 23:39 28 yo male no pmhx here wiht cough nasal congestio myalgia sore throat. likley viral. plan flu swab, meds for sxs control. xray r/o pna. likely dc home. 04/21/19 00:44 cxr negative for pna. dc home viral syndrome
--- NOTE | 2019-04-20 23:45 | PDOC ---
History of Present Illness - General Chief Complaint: Cold Symptoms Stated Complaint: FLU LIKE SYMPTOMS Time Seen by Provider: 04/20/19 22:57 History Source: Patient Exam Limitations: No Limitations - History of Present Illness Initial Comments: 28 y/o M, otherwise healthy with no pmh, present to the ED with malaise, nonproductive cough and headaches of two days duration that has worsened since onset. Pt reports no improvement since onset and has not taken anything to relieve his symptoms. Pt woke up today feeling exhausted and weak, prompting him to come to the ED. No recent hx of being sick. He denies any close sick contacts or recent travels. Denies f/c/n/v/d/sob, abdominal pain. 04/20/19 23:45 04/20/19 23:50 Associated Symptoms: reports: denies symptoms, cough, headaches, weakness. denies: chest pain, diaphoresis, fever/chills, nausea/vomiting, shortness of breath Past History - Travel Traveled outside of the country in the last 30 days: No Close contact w/someone who was outside of country & ill: No - Past Medical History Allergies/Adverse Reactions: Allergies Allergy/AdvReac Type Severity Reaction Status Date / Time Penicillins Allergy Severe Swelling Verified 04/20/19 22:43 doxycycline AdvReac Intermediate Nausea Verified 04/20/19 22:43 Home Medications: Ambulatory Orders NK [No Known Home Medication] 04/12/18 Asthma: No Cancer: No Cardiac Disorders: No COPD: No CHF: No DVT: No Dementia: No Diabetes: No Dialysis: No HTN: No Hypercholesterolemia: No Liver Disease: No - Surgical History Abdominal Surgery: No Appendectomy: No Cardiac Surgery: No Cholecystectomy: No Gastric Stapling: No GI Surgery: No Lung Surgery: No Neurologic Surgery: Yes (BENIGN TUMOR REMOVAL BACK OF HEAD x 2) - Immunization History Td Vaccination: Yes Immunization Up to Date: Yes - Psycho Social/Smoking Cessation Hx Smoking Status: No Smoking History: Never smoked Have you smoked in the past 12 months: No Number of Cigarettes Smoked Daily: 4 If you are a former smoker, when did you quit?: 09/05 Cigars Per Day: 1 Information on smoking cessation initiated: No 'Breaking Loose' booklet given: 08/28/16 Hx Alcohol Use: No Drug/Substance Use Hx: No Substance Use Type: None Review of Systems - Review of Systems Able to Perform ROS?: Yes Is the patient limited Camb[place]ian proficient: No Constitutional: Yes: Symptoms Reported, Malaise, Weakness, Weight Stable. No: Chills, Diaphoresis, Fever HEENTM: Yes: Symptoms Reported, Throat Pain. No: Eye Pain, Blurred Vision, Tearing Respiratory: Yes: Symptoms reported, Cough (nonproductive, mild phelgm at times ), Wheezing. No: Shortness of Breath, Productive cough Cardiac (ROS): Yes: Symptoms Reported, Chest Tightness. No: Chest Pain, Syncope ABD/GI: Yes: Symptoms Reported. No: Abdominal Distended, Constipated, Diarrhea , Nausea, Vomiting Neurological: Yes: Headache, Weakness. No: Numbness, Paresthesia *Physical Exam - Vital Signs Last Vital Signs Temp Pulse Resp BP Pulse Ox 98.6 F 78 17 106/73 98 04/20/19 22:41 04/20/19 22:41 04/20/19 22:41 04/20/19 22:41 04/20/19 22:41 - Physical Exam General Appearance: Yes: Nourished, Appropriately Dressed HEENT: positive: EOMI, RICHARD, Normal ENT Inspection, Pharynx Normal Neck: positive: Trachea midline, Normal Thyroid, Supple Respiratory/Chest: positive: Lungs Clear, Normal Breath Sounds. negative: Respiratory Distress, Crackles, Wheezing Cardiovascular: positive: Regular Rhythm, Regular Rate, S1, S2. negative: Murmur, Gallop/S3, Gallop/S4 Vascular Pulses: Dorsalis-Pedis (R): 2+, Doralis-Pedis (L): 2+ Gastrointestinal/Abdominal: positive: Normal Bowel Sounds, Soft. negative: Guarding, Tenderness Neurologic: positive: Fully Oriented, Alert, Normal Mood/Affect ED Treatment Course - RADIOLOGY Radiology Studies Ordered: Category Date Time Status CHEST PA & LAT [RAD] Stat Radiology 04/20/19 23:39 Ordered Medical Decision Making - Medical Decision Making 28 y/o M, otherwise healthy with no pmh, present to the ED with malaise, nonproductive cough and headaches of two days duration that has worsened since onset #Flu like symptoms- malaise, headaches, cough 2/2 to URI vs Flu Flu swab negative CXR ordered Motrin 400 Pseudephidrine 30 Will reassess pt 04/20/19 23:51 Discharge - Discharge Information Problems reviewed: Yes Clinical Impression/Diagnosis: URI (upper respiratory infection) Qualifiers: URI type: unspecified URI Qualified Code(s): J06.9 - Acute upper respiratory infection, unspecified Condition: Improved Disposition: HOME - Admission No - Follow up/Referral Referrals: Terry Parisi MD [Primary Care Provider] - - Patient Discharge Instructions Patient Printed Discharge Instructions: How to Avoid a Cold or Flu, DI for Viral Upper Respiratory Infection -- Adult Additional Instructions: You were seen in the emergency room for a upper respiratory tract infection While in the emergency room, we evaluated you with a flu swab and an X ray of your chest. We found that your symptoms were caused by an upper respiratory tract infection. We treated you with medications and your symptoms improved. Please take over the counter medications like Motrin for relief from your symptoms as needed Please follow up with your primary care within 1 week Return to the emergency room, if you experience worsening of your symptoms, chest pains, coughing, abdominal pain or worsening of your condition. - Post Discharge Activity Work/Back to School Note: Back to Work
[2019-04-21] MEDS ORDERED: IBUPROFEN 400 MG TABLET (FP) PO ONE (00:32)
[2019-04-21 01:36] VITALS: BP 112/71; PULSE 87; TEMP 97.8
== END 2019-04-21 01:36 | disposition home or self-care (01) ==
LOC: JER 22:27
DX: J06.9 Acute upper respiratory infection, unspecified (principal); Z88.0 Allergy status to penicillin; Z88.1 Allergy status to other antibiotic agents
CPT/HCPCS: 71046-TC-FY; 87804; 99283-25

== ENCOUNTER 2020-08-31 16:13 | Emergency (ER) | payer OTHER ==
[2020-08-31 16:27] VITALS: BP 131/66; PULSE 78; TEMP 98.5; BMI 30.1
[2020-09-01 10:08] LABS: SARS-CoV-2 NAA Not Detected (Not Detected)
== END 2020-08-31 18:03 | disposition home or self-care (01) ==
LOC: JER 16:13
DX: J06.9 Acute upper respiratory infection, unspecified (principal); Z11.52 Encounter for screening for COVID-19
CPT/HCPCS: 99283-25; C9803; U0003; U0005

== ENCOUNTER 2021-12-14 15:26 | Emergency (ER) | payer OTHER ==
[2021-12-14 15:46] VITALS: BP 124/82; PULSE 67; RESP 18; TEMP 97.7; BMI 31.5
== END 2021-12-14 20:09 | disposition home or self-care (01) ==
LOC: JER 15:26
DX: J02.9 Acute pharyngitis, unspecified (principal); M79.10 Myalgia, unspecified site
CPT/HCPCS: 0241U-QW; 99283-25

== ENCOUNTER 2022-03-11 00:54 | Emergency (ER) | payer OTHER ==
[2022-03-11 01:01] VITALS: BP 141/83; PULSE 73; RESP 16; TEMP 98.9; BMI 31.6
[2022-03-11] MEDS ORDERED: ACETAMINOPHEN 325 MG TABLET (FP) PO ONE (01:16)
[2022-03-11] MEDS ORDERED: metroNIDAZOLE 250 MG TABLET PO ONE (01:16)
[2022-03-11] MEDS ORDERED: metroNIDAZOLE 250 MG TABLET ONE (01:18)
[2022-03-11] MEDS ORDERED: ACETAMINOPHEN 325 MG TABLET (FP) ONE (01:19)
== END 2022-03-11 01:25 | disposition home or self-care (01) ==
LOC: FER 00:54
DX: S02.5XXA Fracture of tooth (traumatic), initial encounter for closed fracture (principal)
CPT/HCPCS: 99283-25

== ENCOUNTER 2022-04-22 17:44 | Emergency (ER) | payer OTHER ==
[2022-04-22 18:11] VITALS: BP 131/74; PULSE 68; RESP 16; TEMP 97.8; BMI 33.7
== END 2022-04-22 19:17 | disposition home or self-care (01) ==
LOC: JER 17:44
DX: R11.2 Nausea with vomiting, unspecified (principal); R19.7 Diarrhea, unspecified
CPT/HCPCS: 0241U-QW; 99283-25

== ENCOUNTER 2023-03-05 19:38 | Emergency (ER) | payer SELFPAY ==
[2023-03-05 19:58] VITALS: BP 122/73; PULSE 95; RESP 18; TEMP 97.7; BMI 36.6
== END 2023-03-05 20:34 | disposition home or self-care (01) ==
LOC: JERFT 19:38
DX: R05.9 Cough, unspecified (principal); R09.81 Nasal congestion; M79.10 Myalgia, unspecified site; R09.89 Other specified symptoms and signs involving the circulatory and respiratory systems; J06.9 Acute upper respiratory infection, unspecified; B97.89 Other viral agents as the cause of diseases classified elsewhere; Z20.822 Contact with and (suspected) exposure to COVID-19
CPT/HCPCS: 0241U-QW; 99283-25

== ENCOUNTER 2023-03-17 19:28 | Emergency (ER) | payer SELFPAY ==
[2023-03-17 19:45] VITALS: BP 108/72; PULSE 66; RESP 18; TEMP 98.9; BMI 38.0
[2023-03-17] MEDS ORDERED: ONDANSETRON *ODT* 4 MG TABLET SL ONE (22:04)
[2023-03-17] MEDS ORDERED: ONDANSETRON *ODT* 4 MG TABLET ONE (22:05)
== END 2023-03-17 23:36 | disposition home or self-care (01) ==
LOC: JERFT 19:28 → JER 19:28 → JERFT 23:36
DX: R11.2 Nausea with vomiting, unspecified (principal); R19.7 Diarrhea, unspecified; A05.9 Bacterial foodborne intoxication, unspecified
CPT/HCPCS: 99283-25; Q0162

== ENCOUNTER 2023-05-15 04:52 | Emergency (ER) | payer BC ==
[2023-05-15 05:04] VITALS: TEMP 98.3; BMI 42.3
[2023-05-15] MEDS ORDERED: ONDANSETRON 4 MG/2 ML VIAL IVPUSH ONE (06:28)
[2023-05-15] MEDS ORDERED: ONDANSETRON 4 MG/2 ML VIAL ONE (06:38)
[2023-05-15] MEDS ORDERED: CLINDAMYCIN 600MG PREMIX IVPB 600 MG/50 ML BAG IVPB ONE ×2 (06:45→06:52)
[2023-05-15 07:01] LABS: BASO % 0.7 % (0-2.0); EOS % 6.8 % (0-4.5); HEMATOCRIT 42.1 % (35.4-49); HEMOGLOBIN 14.3 GM/dL (11.7-16.9); LYMPH % 52.7 % (8-40); MCH 32.3 pg (25.7-33.7); MEAN CELL VOLUME 95.2 fl (80-96); MEAN PLT VOLUME 8.2 fl (7.5-11.1); MONO % 8.8 % (3.8-10.2); PLATELET COUNT 299 10^3/uL (134-434); RBC 4.42 M/mm3 (4.00-5.60); RDW 12.7 % (11.9-15.9); WHITE BLOOD COUNT 7.5 K/mm3 (4.0-10.0)
[2023-05-15 07:08] LABS: INR 0.96 (0.83-1.09); PROTHROMBIN TIME (PATIENT) 11.1 SEC (9.7-13.0)
[2023-05-15 07:11] LABS: ACTIVATED PTT 37.5 SECONDS (25.2-36.5)
[2023-05-15 07:13] LABS: POTASSIUM 3.9 mmol/L (3.5-5.1)
[2023-05-15 07:15] LABS: CALCIUM 9.1 mg/dL (8.5-10.1)
[2023-05-15 07:16] LABS: BLOOD UREA NITROGEN 11.8 mg/dL (7-18)
[2023-05-15 07:18] LABS: CREATININE 1.3 mg/dL (0.55-1.3)
[2023-05-15 07:20] LABS: BILIRUBIN,TOTAL 0.4 mg/dL (0.2-1); TOT PROT 7.7 g/dl (6.4-8.2)
[2023-05-15] MEDS ORDERED: KETOROLAC TROMETHAMINE 30 MG/1 ML VIAL IM ONE (08:23)
[2023-05-15] MEDS ORDERED: KETOROLAC TROMETHAMINE 30 MG/1 ML VIAL ONE (08:26)
[2023-05-15] MEDS ORDERED: CLINDAMYCIN HCL 300 MG CAPSULE PO ONE (10:33)
[2023-05-15] MEDS ORDERED: CLINDAMYCIN HCL 150 MG CAPSULE (FP) ONE (10:34)
[2023-05-15 11:09] VITALS: BP 128/80; PULSE 84; RESP 16
== END 2023-05-15 11:07 | disposition home or self-care (01) ==
LOC: JER 04:52
PROC: 3E03329 Introduction of Other Anti-infective into Peripheral Vein, Percutaneous Approach (ICD-10-PCS; principal; 2023-05-15)
PROC: 3E0233Z Introduction of Anti-inflammatory into Muscle, Percutaneous Approach (ICD-10-PCS; 2023-05-15)
DX: K08.89 Other specified disorders of teeth and supporting structures (principal); H92.01 Otalgia, right ear; L72.0 Epidermal cyst; R13.10 Dysphagia, unspecified
CPT/HCPCS: 36415; 70491-TC; 80053; 85025; 85610; 85730; 86850; 86900; 86901; 99285-25

== ENCOUNTER 2024-12-05 02:20 | Emergency (ER) | payer OTHER ==
[2024-12-05 02:25] VITALS: BP 136/76; PULSE 84; RESP 20; TEMP 97.9; BMI 35.9
== END 2024-12-05 03:37 | disposition home or self-care (01) ==
LOC: JER 02:20
DX: L02.31 Cutaneous abscess of buttock (principal); M79.10 Myalgia, unspecified site
CPT/HCPCS: 99283-25; 99284-25

== ENCOUNTER 2024-12-06 22:54 | Emergency (ER) | payer OTHER ==
[2024-12-06 23:07] VITALS: BP 139/82; PULSE 89; RESP 16; TEMP 98.4; BMI 39.7
[2024-12-07 00:54] LABS: ABSOLUTE IMMATURE GRANULOCYTES 0.01 x10^3/uL (0.0-0.031); BASOPHILS # 0.03 x10^3/uL (0.01-0.08); EOSINOPHIL % 4.7 % (0.8-7.0); EOSINOPHILS # 0.40 x10^3/uL (0.04-0.54); MCHC 33.8 g/dl (32.3-36.5); MEAN CELL VOLUME 95.9 fl (79.0-92.2); MEAN PLT VOLUME 9.7 fl (9.4-12.4); MONOCYTE # 0.66 x10^3/uL (0.30-0.82); MONOCYTE % 7.7 % (5.3-12.2); RDW 12.1 % (12.0-15.6)
[2024-12-07] MEDS ORDERED: ACETAMINOPHEN INJECTION 100 ML ONE (00:55)
[2024-12-07] MEDS: ACETAMINOPHEN 1000 MG/100 ML BAG IVPB ONE (00:58)
[2024-12-07 01:08] LABS: GLUCOSE,RANDOM 108.0 mg/dL (74-106)
[2024-12-07 01:09] LABS: TOT PROT 7.5 g/dl (6.4-8.2)
[2024-12-07 01:10] LABS: CO2 23.0 mmol/L (21-32)
[2024-12-07 01:12] LABS: ALK PHOS 74.0 U/L (40-150)
[2024-12-07 01:14] LABS: CREATININE 1.33 mg/dL (0.55-1.3); SGOT/AST 33.0 U/L (5-34); SGPT/ALT 53.0 U/L (0-55)
[2024-12-07 01:34] LABS: HCV DIAGNOSTIC IN-HOUSE W/RFLX NON-REACTIVE (NONREACTIVE)
[2024-12-07 01:35] LABS: HIV INTERPRETATION NEGATIVE (NEGATIVE)
[2024-12-07] MEDS: LACTATED RINGERS SOLUTION 1000 ML INFUS.BAG IV ONE (01:39)
[2024-12-07 01:52] LABS: URINE APPEARANCE CLEAR; URINE BILIRUBIN NEGATIVE (NEGATIVE); URINE COLOR YELLOW; URINE GLUCOSE (UA) NEGATIVE (NEGATIVE); URINE KETONE NEGATIVE (NEGATIVE); URINE LEUK ESTERASE NEGATIVE (NEGATIVE); URINE NITRITE NEGATIVE (NEGATIVE); URINE PROTEIN NEGATIVE (NEGATIVE); URINE UROBILINOGEN 1.0 mg/dL (0.2-1.0)
== END 2024-12-07 03:37 | disposition home or self-care (01) ==
LOC: JER 22:54
PROC: 3E033NZ Introduction of Analgesics, Hypnotics, Sedatives into Peripheral Vein, Percutaneous Approach (ICD-10-PCS; principal; 2024-12-07)
DX: M54.50 Low back pain, unspecified (principal); M53.3 Sacrococcygeal disorders, not elsewhere classified
CPT/HCPCS: 36415; 72193-TC; 80053; 81003; 85025; 86803; 86850; 86900; 86901; 87086; 87389; 99285-25; Q9967